=== PATIENT | male | born 1960 | race Two or more races ===

== ENCOUNTER 2024-05-09 20:43 | Emergency (ER) | payer OTHER ==
[~2024-05-09] VITALS: Ht 188 cm; Wt 97.5 kg
[~2024-05-09 20:43] MED LIST: LOTRISONE CREAM45 GM TP
[2024-05-09] MEDS ORDERED: ATORVASTATIN CA10 MG (21:00)
[2024-05-09] MEDS ORDERED: COZAAR25 MG PO (21:00)
[2024-05-09] MEDS ORDERED: JANUMET 50-1,01 EACH (21:00)
[2024-05-09] MEDS ORDERED: ORPHENADRINE CITRATE 30 MG/ML AMPUL IM STA (21:34)
[2024-05-09] MEDS ORDERED: KETOROLAC TROMETHAMINE 30 MG VIAL IM STA (21:34)
[2024-05-09] MEDS ORDERED: DEXAMETHASONE SODIUM PHOSPHATE 4 MG/ML VIAL IM STA (21:35)
== END 2024-05-09 22:13 | disposition home or self-care (01) ==
LOC: ER 20:45
DX: M54.31 Sciatica, right side (principal)

== ENCOUNTER → 2024-08-25 | Emergency (ER) | payer OTHER ==
[~2024-08-25] VITALS: Ht 188 cm; Wt 95.3 kg
[~2024-08-25] MED LIST changes: +ATORVASTATIN CA10 MG; +COZAAR25 MG PO; +JANUMET 50-1,01 EACH
== END | disposition left against medical advice (07) ==
LOC: ER 20:42
DX: Z53.21 Procedure and treatment not carried out due to patient leaving prior to being seen by health care provider (principal)

== ENCOUNTER 2024-08-31 09:29 | Emergency (ER) | payer OTHER ==
[~2024-08-31] VITALS: Ht 188 cm; Wt 95.3 kg
== END 2024-08-31 10:21 | disposition designated cancer center or children's hospital (05) ==
LOC: ER 09:31
DX: S69.82XA Other specified injuries of left wrist, hand and finger(s), initial encounter (principal); W26.0XXA Contact with knife, initial encounter; Y93.89 Activity, other specified; Y92.69 Other specified industrial and construction area as the place of occurrence of the external cause; Y99.8 Other external cause status